=== PATIENT | male | born 1980 | race Caucasian/White ===

== ENCOUNTER 2018-09-19 10:40 | Day surgery (SDC) | payer OTHER ==
[2018-09-13 11:04] VITALS: BMI 23.8
[2018-09-19] MEDS ORDERED: MIDAZOLAM HCL 2 MG/2 ML SINGLE DOSE VIAL ONE ×2 (12:19→13:44)
[2018-09-19] MEDS ORDERED: LIDOCAINE HCL/PF 2% SDV 5ML VIAL ONE (12:21)
[2018-09-19] MEDS ORDERED: LIDOCAINE 1% P/F 10 MG/ML VIAL ONE (12:50)
[2018-09-19] MEDS ORDERED: LIDOCAINE HCL 2% (20ML MULTI-DOSE VIAL) NR ONE (12:51)
[2018-09-19] MEDS ORDERED: oxyCODONE HCL 5 MG TABLET PO PRN (13:06)
[2018-09-19] MEDS ORDERED: ONDANSETRON 4 MG/2 ML VIAL IVPUSH PRN (13:06)
[2018-09-19] MEDS ORDERED: LACTATED RINGERS SOLUTION 1,000 ML IV SCH (13:15)
[2018-09-19] MEDS ORDERED: PROPOFOL 20 ML ONE (13:30)
[2018-09-19] MEDS ORDERED: LIDOCAINE HCL 1%, 10 MG/ML (50 mL VIAL) IJ ONE (13:40)
[2018-09-19] MEDS ORDERED: DEXAMETHASONE SOD PHOSPHATE 4 MG/1 ML VIAL ONE (13:41)
[2018-09-19] MEDS ORDERED: ceFAZolin SODIUM 1 GM VIAL ONE (13:41)
[2018-09-19] MEDS ORDERED: ONDANSETRON 4 MG/2 ML VIAL ONE (13:41)
[2018-09-19] MEDS ORDERED: oxyCODONE HCL 5 MG TABLET ONE (15:48)
[2018-09-19 18:03] VITALS: TEMP 97.7
[2018-09-19 18:10] VITALS: BP 138/75; PULSE 75
--- NOTE | 2018-09-20 00:13 | OP ---
DATE OF OPERATION: 09/19/2018 PROCEDURE PERFORMED: Spinal cord stimulator trial with one lead placement under fluoroscopic guidance. SURGEON: Soniya Smith MD CONSENT AND HISTORY: The patient was evaluated and examined prior to the procedure. The risks and benefits were discussed with the patient and informed written consent was obtained. Risks including osteomyelitis, discitis, and possible leakage of cerebrospinal fluid were discussed with the patient. PROCEDURE: The patient was brought into the procedure room, IV access given, IV sedation given, and 1 gm of Kefzol IV was also given for infection prophylaxis. The patient was placed in the prone position with a pillow underneath the abdomen, prepped and draped in the usual sterile fashion. Under fluoroscopic guidance the lumbar spine was examined and T7-8 interspace was identified. A 14-gauge 5-inch epidural needle was used from the [employer] Stimulation Spinal Cord Stimulator Trial Kit. It was advanced at a 15 degree angle aiming at the midline of the T7-T8 epidural space under loss of resistance technique. The epidural space was accessed. Omnipaque 240 solution was injected and the epidural space was assessed. Spot film was documented. The spinal cord stimulator lead wire was advanced under continuous fluoroscopic guidance to the level of T7-T8 space. The tip of the lead wire was at the T8 level between the pedicles with good positioning. The electrode was secured down with a single stitch. AP and lateral fluoroscopic spot films confirmed placement, and the wire secured, draped, and Tegaderm dressing placed. PROGRAMMING: The patient tolerated the procedure well. At this point, trial lead wire was connected to the external statistical programmer analyst to achieve reasonable bilateral lower extremity and lumbar back pain relief. He was sent to the Recovery Room under observation. No immediate complications. SONIYA SMITH M.D. [id number]
== END 2018-09-19 16:10 | disposition home or self-care (01) ==
LOC: FASU 10:40
PROVIDERS: ATTEND Pain Medicine Interventional Pain Medicine
PROC: 4B01XVZ Measurement of Peripheral Nervous Stimulator, External Approach (ICD-10-PCS; 2018-09-19)
PROC: 00HU3MZ Insertion of Neurostimulator Lead into Spinal Canal, Percutaneous Approach (ICD-10-PCS; principal; 2018-09-19 13:37)
DX: M54.16 Radiculopathy, lumbar region (principal)
CPT/HCPCS: 63650; C1897; 72100-TC-FY; 76000-TC-FY